=== PATIENT | male | born 1995 | race Caucasian/White ===

== ENCOUNTER 2017-08-06 12:04 | Emergency (ER) | payer OTHER ==
[~2017-08-06] VITALS: Ht 190.5 cm; Wt 127.5 kg
[2017-08-06 14:16] LABS: TROPONIN I < 0.015 ng/mL (0.000-0.045)
[2017-08-06] MEDS ORDERED: LORazepam 1MG TABLET ONE (14:23)
[2017-08-06] MEDS ORDERED: KETOROLAC 30 MG/1 ML ONE (14:23)
[2017-08-06] MEDS ORDERED: LORazepam 1MG TABLET PO ONE (15:00)
[2017-08-06] MEDS ORDERED: KETOROLAC 60 MG/2 ML IM ONE (15:00)
[2017-08-06 15:11] VITALS: BP 127/78
== END 2017-08-06 15:13 | disposition home or self-care (01) ==
LOC: ED 14:25
DX: R07.9 Chest pain, unspecified (principal)
CPT/HCPCS: 36415; 71046; 84484; 93005; 96372; 99285; J1885